=== PATIENT | female | born 1945 | race Two or more races ===

== ENCOUNTER 2019-10-03 12:24 | Emergency (ER) | payer OTHER, MEDICAID ==
[~2019-10-03] VITALS: Ht 154.9 cm; Wt 50.0 kg
[2019-10-03] MEDS ORDERED: ACETAMINOPHEN WITH CODEINE 300/30MG TABLET PO ONE (13:45)
[2019-10-03 15:01] VITALS: BP 150/76
== END 2019-10-03 14:52 | disposition home or self-care (01) ==
LOC: ER 12:24
DX: S52.592A Other fractures of lower end of left radius, initial encounter for closed fracture (principal); S52.692A Other fracture of lower end of left ulna, initial encounter for closed fracture; I10 Essential (primary) hypertension; E80.20 Unspecified porphyria; Z96.649 Presence of unspecified artificial hip joint; W01.0XXA Fall on same level from slipping, tripping and stumbling without subsequent striking against object, initial encounter; Y93.89 Activity, other specified; Y92.018 Other place in single-family (private) house as the place of occurrence of the external cause
CPT/HCPCS: 29125; 73110; 99283